=== PATIENT | male | born 1940 | race Hispanic/Latino ===

== ENCOUNTER → 2019-07-26 | Outpatient (CLI) | payer MEDICARE, OTHER ==
--- NOTE | 2019-07-27 08:49 | Diagnostic Imaging Report ---
Exam: KUB - 2 views Indication: Renal calculi, Agent [place] exposure. Comparison: None Findings: No radiographically apparent renal calculi. Nonobstructive bowel gas pattern. No free air. Status post cholecystectomy. Degenerative changes of the visualized spine. Phleboliths in the pelvis. Scattered atherosclerotic vascular calcifications. Impression: No radiographic apparent renal calculi. Signed by: Pankaj Webster MD on 07/27/2019 8:45 AM
== END ==
LOC: RAD 17:05
PROVIDERS: ATTEND Urology
DX: N20.0 Calculus of kidney (principal)
CPT/HCPCS: 74018

== ENCOUNTER 2020-01-13 13:45 | Observation (INO) | payer MEDICARE ==
[~2020-01-13] VITALS: Ht 172.7 cm; Wt 86.2 kg
[~2020-01-13 13:45] MED LIST: ALLOPURINOL300 MG PO; ANDROGEL2.5 G1 TOP; ATENOLOL50 MG PO; CENTRUM MEN'S1 EACH PO; CYMBALTA30 MG PO; FLOMAX0.4 MG PO; GLIMEPIRIDE2 MG PO; ISOSORBIDE MONO30 MG PO; METFORMIN HCL500 MG PO; NITROGLYCERIN0.4 MG SL; PLAVIX75 MG PO; PRAMIPEXOLE ER1.5 MG PO; PRAVASTATIN SOD40 MG PO; SYNTHROID125 MCG PO; VIT D PO
--- OUTSIDE RECORDS SUMMARY | 2020-01-13 13:49 | XMS REPORT | Summary of Care ---
Author Author LILAIN BRUNO M.D. Organization Unknown Address Unknown Phone Unavailable Care Team Providers Care Imaging Aide Name Role Phone LILIAN BRUNO M.D. Unavailable Unavailable LUIS ENRIQUE SUAREZ MD Unavailable Unavailable LILIAN BRUNO MD Unavailable Unavailable Unavailable Unavailable Functional Status Name Dates Details Functional status health issues are not documented Status: Name Dates Details Cognitive status health issues are not documented Status: Problems Name Dates Details Nephrolithiasis (592.0, N20.0) Status: Active Coronary artery disease (414.00, I25.10) Status: Active Cerebral artery occlusion (434.90, I66.9) Status: Active Fatigue (780.79, R53.83) Status: Active Need for immunization against influenza (V04.81, Z23) Status: Active Diabetes mellitus (250.00, E11.9) Status: Active 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 * Start : 02-Sep-2012 Active Ramipril 5 MG Oral Capsule TAKE 1 CAPSULE BY MOUTH TWICE DAILY HELD BY Dr MORGAN * Quantity: 180 Refills: 0 LILIAN BRUNO M.D. * Start : 02-Sep-2012 Active Plavix 75 MG Oral Tablet * Refills: 0 LILIAN BRUNO M.D. * Start : 02-Sep-2012 Active Synthroid 125 MCG Oral Tablet TAKE 1 TABLET BY MOUTH EVERY DAY * Quantity: 90 Refills: 0 LILIAN BRUNO M.D. * Start : 02-Sep-2012 Active Cymbalta 60 MG Oral Capsule Delayed Release Particles * Refills: 0 LILIAN BRUNO M.D. * Start : 02-Sep-2012 Active Allopurinol 300 MG Oral Tablet * Refills: 0 LILIAN BRUNO M.D. * Start : 02-Sep-2012 Active Vitamin D (Ergocalciferol) 1.25 MG (26204 UT) Oral Capsule TAKE 2 CAPS BY MOUTH ON FIRST WEDNESDAY OF THE MONTH THEN TAKE ONE CAPSULE FOR OF THE WEEK * Quantity: 15 Refills: 1 LILIAN BRUNO M.D. * Start : 02-Sep-2012 Active Nitrostat 0.4 MG Sublingual Tablet Sublingual * Refills: 0 LILIAN BRUNO M.D. * Start : 05-Sep-2012 Active Testosterone 20.25 MG/1.25GM (1.62%) Transdermal Gel apply 2 pump presses to one arm/shoulder and 1 press on other arm/shoulder daily on clean dry skin (3 presses daily) Start 05-06-19 * Quantity: 6 Refills: 0 LILIAN BRUNO M.D. * Start : 17-Oct-2013 Active 30 x 1.25 GM Box Pravastatin Sodium 40 MG Oral Tablet TAKE 1 TABLET DAILY * Refills: 0 LILIAN BRUNO M.D. * Start : 01-Oct-2015 Active Glimepiride 1 MG Oral Tablet TAKE 1 TABLET AM; 1/2 TABLET PM; take with food * Quantity: 180 Refills: 1 LILIAN BRUNO M.D. * Start : 01-Oct-2015 Active Pantoprazole Sodium 40 MG Oral Tablet Delayed Release TAKE 1 TABLET DAILY. * Quantity: 30 Refills: 6 LILIAN BRUNO M.D. * Start : 01-Oct-2015 Active Isosorbide Mononitrate ER 30 MG Oral Tablet Extended Release 24 Hour TAKE 1 TABLET DAILY. * Quantity: 90 Refills: 3 LILIAN BRUNO M.D. * Start : 01-Oct-2015 Active JonesTouch Madai Moore MISKendrick Check BG 2x a day * Quantity: 200 Refills: 4 LILIAN BRUNO M.D. * Start : 07-Jan-2016 Active OneTouch Verio In Vitro Strip USE TO TEST BLOOD SUGAR 3 TIMES A DAY * Quantity: 300 Refills: 0 LILIAN BRUNO M.D. * Start : 07-Jan-2016 Active HumaLOG KwikPen 100 UNIT/ML Subcutaneous Solution Pen-injector CF 40 ( sliding scale); up to 50 units * Quantity: 5 Refills: 1 LILIAN BRUNO M.D. * Start : 11-Sep-2016 Active 3 ML Pen BD Pen Needle Jenni U/F 32G X 4 MM 1 a day * Quantity: 1 Refills: 3 LILIAN BRUNO M.D. * Start : 11-Sep-2016 Active 100 Miscellaneous Box B-12 1000 MCG Oral Capsule 1 a day NOT TAKING * Quantity: 100 Refills: 10 LILIAN BRUNO M.D. * Start : 31-Mar-2017 Active Atenolol 50 MG Oral Tablet Per Dr Morgan * Refills: 0 LILIAN BRUNO M.D. * Start : 21-Dec-2018 Active 45 Tablet Bottle Gabapentin 300 MG Oral Capsule * Refills: 0 LILIAN BRUNO M.D. * Start : 03-May-2019 Active Pramipexole Dihydrochloride 0.25 MG Oral Tablet * Refills: 0 LILIAN BRUNO M.D. * Start : 03-May-2019 Active Ergocalciferol 1.25 MG (29532 UT) Oral Capsule TAKE 2 CAPS BY MOUTH ON FIRST WEDNESDAY OF THE MONTH THEN TAKE ONE CAPSULE FOR OF THE WEEK * Quantity: 15 Refills: 0 LILIAN BRUNO M.D. * Start : 27-Nov-2019 Active Testosterone 20.25 MG/ACT (1.62%) Transdermal Gel apply 2 pump presses to one arm/shoulder and 1 press on other arm/shoulder daily on clean dry skin (3 presses daily) Start 05-06-19 * Quantity: 5 Refills: 0 LILIAN BRUNO M.D. * Start : 27-Nov-2019 Active 75 GM Pump Btl Allergies and Adverse Reactions Name Dates Details No Known Drug Allergies (Allergy) Status: Active Past Medical History Name Dates Details History of cataract (V12.49, Z86.69) Status: Resolved History of renal calculi (V13.01, Z87.442) Status: Resolved Procedures Procedure Dates Details History of Appendectomy Completed History of CABG Completed History of Cholecystectomy Completed History of Hernia Repair Completed History of Shoulder Surgery Completed History of Shoulder replacement Completed Immunization Name Dates Details Influenza on: Aug-2014 Fluzone High-Dose 0.5 ML Intramuscular Suspension Prefilled Syringe Lot #: [id number] on: 01-Oct-2015 Fluzone High-Dose 0.5 ML Intramuscular Suspension Prefilled Syringe Lot #: [id number] on: 11-Sep-2016 Influenza Comments: Approx [id number] Influenza on: 17-Aug-2018 Influenza Comments: Approx [id number] Fluzone High-Dose 0.5 ML Intramuscular Suspension Prefilled Syringe on: 17-Jul-2019 Family History Name Dates Details Family history of Diabetes Mellitus (V18.0) Comments: Family History Status: Active Name Dates Details Family history of Diabetes Mellitus (V18.0) Status: Active Social History Name Dates Details - Status: Name Dates Details Former smoker Vital Signs Date Test Result Details No Known Vitals to report Results Date Description Value Details Results not documented Plan of Care Name Dates Details Planned Observations Planned Goals not documented Planned Encounters Appointment; LILIAN BRUNO M.D. On: 12-Dec-2019 9:30 Interventions Provided Medication Changes* Testosterone 20.25 MG/ACT (1.62%) Transdermal Gel - Renew Instructions Name Dates Details Instructions not documented Encounters Appointment; LILIAN BRUNO M.D. Encounter Diagnosis: Problem not documented On: 21-Feb-2018 9:00 Appointment; LILIAN BRUNO M.D. Encounter Diagnosis: Problem not documented On: 27-May-2018 10:30 Appointment; LILIAN BRUNO M.D. Encounter Diagnosis: Problem not documented On: 09-Sep-2018 13:00 Appointment; LILIAN BRUNO M.D. Encounter Diagnosis: Problem not documented On: 21-Dec-2018 10:00 Appointment; LILIAN BRUNO M.D. Encounter Diagnosis: Problem not documented On: 03-May-2019 14:45 Appointment; LILIAN BRUNO M.D. Encounter Diagnosis: Problem not documented On: 02-Aug-2019 8:30
--- OUTSIDE RECORDS SUMMARY | 2020-01-13 13:49 | XMS REPORT | Summary of Care ---
Author Author Juan Cyr, [facility] [place] Address Unknown Phone Unavailable Care Team Providers Care Sleep Technologist Name Role Phone LILIAN BRUNO M.D. Unavailable [...] 02-Sep-2012 Active Vitamin D (Ergocalciferol) 1.25 MG (80437 UT) Oral Capsule TAKE 2 CAPS BY [...] Start : 03-May-2019 Active Ergocalciferol 1.25 MG (30673 UT) Oral Capsule TAKE 2 CAPS BY MOUTH ON FIRST WEDNESDAY OF THE MONTH THEN TAKE ONE CAPSULE FOR REST OF THE WEEK * Quantity: 15 Refills: 0 LILIAN BRUNO M.D. * Start : 27-Nov-2019 Active Allergies and Adverse Reactions Name Dates Details [...] ML Intramuscular Suspension Prefilled Syringe Lot #: [id number] on: 01-Oct-2015 Fluzone High-Dose 0.5 ML Intramuscular Suspension Prefilled Syringe Lot #: [id number] on: 11-Sep-2016 Influenza Comments: Approx [id number] Influenza on: 17-Aug-2018 Influenza Comments: Approx [id number] Fluzone High-Dose 0.5 ML Intramuscular Suspension Prefilled [...] On: 12-Dec-2019 9:30 Interventions Provided Medication Changes* Ergocalciferol 1.25 MG (49797 UT) Oral Capsule - Renew Instructions Name Dates Details Instructions [...]
--- OUTSIDE RECORDS SUMMARY | 2020-01-13 13:49 | XMS REPORT | Summary of Care ---
Author Author LILIAN BRUNO M.D. Organization Unknown Address Unknown Phone Unavailable Care Team Providers Care Physiological Chemist Name Role Phone LILIAN BRUNO M.D. Unavailable [...] 02-Sep-2012 Active Allopurinol 300 MG Oral Tablet Per urologist * Refills: 0 LILIAN BRUNO M.D. * Start : 02-Sep-2012 Active Nitrostat 0.4 MG Sublingual Tablet Sublingual * Refills: 0 LILIAN BRUNO M.D. * Start : 05-Sep-2012 Active Pravastatin Sodium 40 MG Oral Tablet TAKE 1 TABLET DAILY * Refills: 0 LILIAN BRUNO M.D. * Start : 01-Oct-2015 Active Glimepiride 1 MG Oral Tablet TAKE 1 TABLET AM; 1 TABLET PM; take with food * Quantity: 180 Refills: 1 LILIAN BRUNO M.D. * Start : 01-Oct-2015 Active Pantoprazole Sodium 40 MG Oral Tablet Delayed Release Per PCP * Refills: 6 LILIAN BRUNO M.D. * Start : 01-Oct-2015 Active Isosorbide Mononitrate ER 30 MG Oral Tablet Extended Release 24 Hour TAKE 1 TABLET DAILY. * Quantity: 90 Refills: 3 LILIAN BRUNO M.D. * Start : 01-Oct-2015 Active OneTouch Delica Lancets Fine MISC Check BG 2x a day * Quantity: [...] Start : 21-Dec-2018 Active 45 Tablet Bottle Pramipexole Dihydrochloride 0.25 MG Oral Tablet * Refills: 0 LILIAN BRUNO M.D. * Start : 03-May-2019 Active Ergocalciferol 1.25 MG (11050 UT) Oral Capsule TAKE 2 CAPS BY [...] : 27-Nov-2019 Active 75 GM Pump Btl Fortesta 10 MG/ACT (2%) Transdermal Gel Apply 2 pump presses to each inner thigh * Quantity: 3 Refills: 1 LILIAN BRUNO M.D. * Start : 12-Dec-2019 Active 60 GM Pump Btl Allergies and Adverse Reactions [...] Surgery Completed History of Shoulder replacement Completed History of Bladder Surgery Completed Immunization Name Dates Details Influenza on: Aug-2014 Fluzone High-Dose 0.5 ML Intramuscular Suspension Prefilled Syringe Lot #: [id number] on: 01-Oct-2015 Fluzone High-Dose 0.5 ML Intramuscular Suspension Prefilled Syringe Lot #: [id number] on: 11-Sep-2016 Influenza Comments: Approx [id number] Influenza on: 17-Aug-2018 Influenza Comments: Approx [id number] Fluzone High-Dose 0.5 ML Intramuscular Suspension Prefilled Syringe on: 17-Jul-2019 Family History Name Dates Details Family history of Diabetes Mellitus (V18.0) Comments: Family History Status: Active Name Dates Details Family history of Diabetes Mellitus (V18.0) Status: Active Social History Name Dates Details - Status: Name Dates Details Former smoker Vital Signs Date Test Result Details [id number]:05 BP Systolic 102 mm[Hg] Status: Comments: Location: RUE; Position: Sitting BP Diastolic 70 mm[Hg] Status: Comments: Location: RUE; Position: Sitting :56 BP Systolic 94 mm[Hg] Status: Comments: Location: RUE; Position: Sitting BP Diastolic 62 mm[Hg] Status: Comments: Location: RUE; Position: Sitting Height 68 in Status: Weight 191.5625 lb Status: Body Mass Index Calculated 29.13 kg/m2 Status: Body Surface Area Calculated 2.01 m2 Status: Heart Rate 84 /min Status: Results Date Description Value Details :54 [O] Hemoglobin A1c (in office) HEMOGLOBIN A1c 6.7 :55 Glucose (Point of Care In Office) Glucose POC [place] 175 :55 [O] Lipid Panel (In Office) CHOLESTEROL, TOTAL 144 HDL CHOLESTEROL 58 TRIGLYCERIDES 111 LDL-CHOLESTEROL 64 NON HDL CHOLESTEROL 86 T. Chol/HDL Ratio 2.5 GLUCOSE 164 Plan of Care Name Dates Details Planned Observations Planned Goals not documented Planned Encounters Appointment; LILIAN BRUNO M.D. On: 13-Mar-2020 11:00 Interventions Provided Medication Changes* metFORMIN HCl ER 500 MG Oral Tablet Extended Release 24 Hour - Renew * Synthroid 125 MCG Oral Tablet - Renew * Testosterone 20.25 MG/ACT (1.62%) Transdermal Gel - Renew Labs/Procedures/Imaging* [O] Hemoglobin A1c (in office); Done: 12 Dec 2019 * [O] Lipid Panel (In Office); Done: 12 Dec 2019 * Glucose (Point of Care In Office); Done: 12 Dec 2019 Discussion/Summary* A1c and CBG generally okay. Continue regimen. Discussed the importance of DM control and its complications. Stressed the importance of consistent MNT and med compliance in DM control * Continue to do SMBG. * Take medicine per carbide grinder. Discussed the importance of BP control. * Take medicine per PCP. MNT reiterated. Discussed the importance of Lipid control. * take Vit D * He again missed ART lately due to insurance * [facility] * Spent 25/30 mins counseling pt and spouse Instructions Name Dates Details Instructions not documented [...] Diagnosis: Problem not documented On: 02-Aug-2019 8:30 Appointment; LILIAN BRUNO M.D. Encounter Diagnosis: Problem not documented On: 12-Dec-2019 9:30
--- OUTSIDE RECORDS SUMMARY | 2020-01-13 13:49 | XMS REPORT | Summary of Care ---
Author Author LILIAN BRUNO M.D. Organization Unknown Address Unknown Phone Unavailable Care Team Providers Care Certified Dietary Manager Name Role Phone LILIAN BRUNO M.D. Unavailable [...] 02-Sep-2012 Active Vitamin D (Ergocalciferol) 1.25 MG (34416 UT) Oral Capsule TAKE 2 CAPS BY [...] Start : 03-May-2019 Active Ergocalciferol 1.25 MG (60610 UT) Oral Capsule TAKE 2 CAPS BY [...] ML Intramuscular Suspension Prefilled Syringe Lot #: [id number] on: 01-Oct-2015 Fluzone High-Dose 0.5 ML Intramuscular Suspension Prefilled Syringe Lot #: [id number] on: 11-Sep-2016 Influenza Comments: Approx [id number] Influenza on: 17-Aug-2018 Influenza Comments: Approx [id number] Fluzone High-Dose 0.5 ML Intramuscular Suspension Prefilled [...] BRUNO M.D. On: 12-Dec-2019 9:30 Interventions Provided Discussion/Summary* Discussed the importance of DM control and its complications. Stressed the importance of consistent MNT and med compliance in DM control * do SMBG. * Take medicine. Discussed the importance of BP control. * Take medicine. MNT reiterated. Discussed the importance of Lipid control. * take Vit D * ART Instructions Name Dates Details Instructions not documented [...]
--- OUTSIDE RECORDS SUMMARY | 2020-01-13 13:49 | XMS REPORT | Summary of Care ---
Author Author Maritza Cyr, Tara Townsend Unknown Address Unknown Phone Unavailable Care Team Providers Care Gate Manager Name Role Phone LILIAN BRUNO M.D. Unavailable Unavailable Tara Salas R.N. Unavailable Unavailable LUIS ENRIQUE SUAREZ MD Unavailable [...] BY MOUTH TWICE A DAY Quantity: 360 DAMION M.D., LILIAN * Start : 02-Sep-2012 Active Ramipril 5 MG Oral Capsule TAKE 1 CAPSULE BY MOUTH TWICE DAILY HELD BY Dr MORGAN * Quantity: 180 Refills: 0 DAMION M.D., LILIAN * Start : 02-Sep-2012 Active Plavix 75 MG Oral Tablet * Refills: 0 DAMION M.D., LILIAN * Start : 02-Sep-2012 Active Synthroid 125 MCG Oral Tablet TAKE 1 TABLET BY MOUTH EVERY DAY * Quantity: 90 Refills: 0 DAMION M.D., LILIAN * Start : 02-Sep-2012 Active Cymbalta 60 MG Oral Capsule Delayed Release Particles * Refills: 0 LILIAN BRUNO M.D. * Start : 02-Sep-2012 Active Allopurinol 300 MG Oral Tablet * Refills: 0 LILIAN BRUNO M.D. * Start : 02-Sep-2012 Active Vitamin D (Ergocalciferol) 1.25 MG (27024 UT) Oral Capsule TAKE 2 CAPS BY [...] A DAY * Quantity: 300 Refills: 0 DAMION Angelia.María, LILIAN * Start : 07-Jan-2016 Active HumaLOG KwikPen 100 UNIT/ML Subcutaneous Solution Pen-injector CF 40 ( sliding scale); up to 50 units * Quantity: 5 Refills: 1 DAMION M.María, LILIAN * Start : 11-Sep-2016 Active 3 ML Pen BD Pen Needle Jenni U/F 32G X 4 MM 1 a day * Quantity: 1 Refills: 3 DAMION Angelia.Obie., LILIAN * Start : 11-Sep-2016 Active 100 Miscellaneous Box B-12 1000 MCG Oral Capsule 1 a day NOT TAKING * Quantity: 100 Refills: 10 DAMION Angelia.Obie., LILIAN * Start : 31-Mar-2017 Active Atenolol 50 MG Oral Tablet Per Dr Morgan * Refills: 0 DAMION M.María, LILIAN * Start : 21-Dec-2018 Active 45 Tablet Bottle Gabapentin 300 MG Oral Capsule * Refills: 0 DAMION Angelia.María, LILIAN * Start : 03-May-2019 Active Pramipexole Dihydrochloride 0.25 MG Oral Tablet * Refills: 0 DAMION M.D., LILIAN * Start : 03-May-2019 Active Allergies and Adverse Reactions Name Dates [...] ML Intramuscular Suspension Prefilled Syringe Lot #: [id number] on: 01-Oct-2015 Fluzone High-Dose 0.5 ML Intramuscular Suspension Prefilled Syringe Lot #: [id number] on: 11-Sep-2016 Influenza Comments: Approx [id number] Influenza on: 17-Aug-2018 Influenza Comments: Approx [id number] Fluzone High-Dose 0.5 ML Intramuscular Suspension Prefilled [...] M.D. On: 12-Dec-2019 9:30 Interventions Provided Discussion/Summary* Guideline Used: * Other: speak with clinic staff * Intended Caller Action: * Other: speak with staff Instructions Name Dates Details Instructions not documented [...]
[2020-01-13] MEDS ORDERED: NITROGLYCERIN 2% OINT 1 GM PKT TOP ONE (14:00)
[2020-01-13] MEDS ORDERED: ASPIRIN 81 MG CHEW TAB PO ONE (14:00)
[2020-01-13 14:29] LABS: BASOPHILS % 0.6 % (0.0-1.0); EOSINOPHILS # (AUTO) 0.1 (0.0-0.4); EOSINOPHILS % 1.7 % (0.0-6.0); HEMATOCRIT 41.8 % (38.2-49.6); HEMOGLOBIN 13.1 g/dL (14.0-18.0); LYMPHOCYTES % 27.8 % (18.0-39.1); MEAN CORPUSCULAR HEMOGLOBIN 26.7 pg (28-32); MEAN CORPUSCULAR HGB CONC 31.3 g/dL (31-35); MEAN CORPUSCULAR VOLUME 85.3 fL (81-99); MONOCYTES # (AUTO) 0.5 (0.2-0.8); MONOCYTES % 7.2 % (4.4-11.3); NEUTROPHILS # (AUTO) 4.4 (2.1-6.9); NEUTROPHILS % 62.1 % (38.7-80.0); PLATELET COUNT 233 x10e3/uL (140-360); RED CELL DISTRIBUTION WIDTH 20.1 % (11.7-14.4)
[2020-01-13 14:33] LABS: INR 0.88; PROTHROMBIN TIME 12.4 seconds (11.9-14.5)
[2020-01-13 14:34] LABS: PARTIAL THROMBOPLASTIN TIME 27.1 seconds (23.8-35.5)
[2020-01-13 14:44] LABS: ALANINE AMINOTRANSFERASE 30 IU/L (0-55); ALBUMIN 4.1 g/dL (3.5-5.0); ALBUMIN/GLOBULIN RATIO 1.4 (0.8-2.0); ALKALINE PHOSPHATASE 105 IU/L (40-150); ANION GAP 10.8 mmol/L (8-16); BLOOD UREA NITROGEN 18 mg/dL (7-26); BUN/CREATININE RATIO 18 (6-25); CALCIUM 9.3 mg/dL (8.4-10.2); CARBON DIOXIDE 27 mmol/L (22-29); CHLORIDE 106 mmol/L (98-107); CREATINE KINASE 353 IU/L (30-200); CREATININE, SERUM 1.02 mg/dL (0.72-1.25); EST GLOMERULAR FILTRATION RATE > 60 ML/MIN (60-); GLUCOSE 181 mg/dL (74-118); MAGNESIUM 1.7 MG/DL (1.3-2.1); POTASSIUM 3.8 mmol/L (3.5-5.1); SODIUM 140 mmol/L (136-145)
[2020-01-13] MEDS ORDERED: ONDANSETRON HCL INJ 2MG/ML 2ML 2 MG/ML VIAL IV PRN (14:45)
[2020-01-13] MEDS ORDERED: MORPHINE SULFATE 2 MG/ML SYR 1ML IV PRN (14:45)
[2020-01-13] MEDS ORDERED: NITROGLYCERIN 0.4 MG SUBL SL PRN (14:45)
[2020-01-13] MEDS ORDERED: DEXTROSE 50% SYRINGE 50 ML IV PRN (14:45)
--- NOTE | 2020-01-13 15:14 | Diagnostic Imaging Report ---
Examination: Single AP view of the chest. COMPARISON: Chest 2 views 09/08/2019 INDICATION: Chest pain IMPRESSION: 1. Lines and Tubes: None 2. Lungs are grossly clear. No consolidation or effusion. 3. Cardiomediastinal silhouette is normal. Pulmonary vasculature is normal. 4. No acute bony abnormalities. Midline sternotomy wires. Signed by: Dr. Leo Moseley M.D. on 01/13/2020 3:11 PM
[2020-01-13] MEDS: FAMOTIDINE 20 MG/2 ML VIAL IV SCH (15:48)
[2020-01-13 16:00] VITALS: BP 152/89
--- NOTE | 2020-01-13 16:11 | NUR ---
Recvd patient from ER, AAOx3. Denies any chest pain or SOB now, assisted him to bed, keep monitoring, family at bed side.
[2020-01-13] MEDS ORDERED: PANTOPRAZOLE SO40 MG PO (16:22)
[2020-01-13] MEDS ORDERED: AMITRIPTYLINE H25 MG PO (16:22)
[2020-01-13] MEDS: INSULIN LISPRO 100 UNIT/1 ML 3ML VIAL SQ SCH ×2 (16:30→20:35)
[2020-01-13 16:33] VITALS: BP 137/94
--- NOTE | 2020-01-13 19:20 | NUR ---
Patient received sitting up in bed. Family at bedside. Patient had no complaints of pain. Respirations even and non-labored. Fall precautions implemented. Patient instructed to call for assistance when needed. Call light within reach.
[2020-01-13 20:00] VITALS: BP 147/67
--- NOTE | 2020-01-13 20:47 | NUR ---
Patient stated he takes Pramipexole 2.5 mg PO and Amitriptyline 25 mg PO for restless legs /neuropathic pain. Dr. Armenta notified. New order received to continue both medications.
--- NOTE | 2020-01-13 22:00 | NUR ---
Blood specimen sent to lab for analysis of cardiac enzymes.
[2020-01-13] MEDS: PRAMIPEXOLE DIHYDROCHLORIDE 1 MG TAB PO SCH (22:14)
[2020-01-13] MEDS: AMITRIPTYLINE HCL 25 MG TAB PO SCH (22:14)
[2020-01-13 23:35] LABS: CREATINE KINASE MB 10.2 ng/mL (0-5.0)
[2020-01-14] VITALS (9 sets, daily range): BP systolic 141–176; BP diastolic 74–93
--- NOTE | 2020-01-14 00:15 | NUR ---
Report given to Zhao (RN) about patient's status. . Patient transferred to Room 112.
[2020-01-14] MEDS: FAMOTIDINE 20 MG/2 ML VIAL IV SCH ×2 (03:11→15:05)
--- NOTE | 2020-01-14 07:00 | NUR ---
BEDSIDE SHIFT REPORT RECEIVED FROM SANITARY ENGINEERING TEACHER NURSE. PT DENIES NEEDS AT THIS TIME.
[2020-01-14 07:18] LABS: BASOPHILS # (AUTO) 0.1 (0.0-0.1); BASOPHILS % 0.9 % (0.0-1.0); EOSINOPHILS # (AUTO) 0.2 (0.0-0.4); EOSINOPHILS % 2.5 % (0.0-6.0); HEMATOCRIT 45.8 % (38.2-49.6); HEMOGLOBIN 14.1 g/dL (14.0-18.0); LYMPHOCYTES # (AUTO) 1.8 (1.0-3.2); LYMPHOCYTES % 25.5 % (18.0-39.1); MEAN CORPUSCULAR HEMOGLOBIN 26.7 pg (28-32); MEAN CORPUSCULAR HGB CONC 30.8 g/dL (31-35); MEAN CORPUSCULAR VOLUME 86.7 fL (81-99); MONOCYTES # (AUTO) 0.7 (0.2-0.8); MONOCYTES % 9.6 % (4.4-11.3); NEUTROPHILS # (AUTO) 4.2 (2.1-6.9); NEUTROPHILS % 60.8 % (38.7-80.0); PLATELET COUNT 197 x10e3/uL (140-360); RED BLOOD COUNT 5.28 x10e6/uL (4.3-5.7); RED CELL DISTRIBUTION WIDTH 20.2 % (11.7-14.4)
[2020-01-14] MEDS: INSULIN LISPRO 100 UNIT/1 ML 3ML VIAL SQ SCH ×4 (07:30→21:00)
[2020-01-14 07:37] LABS: ALANINE AMINOTRANSFERASE 27 IU/L (0-55); ALBUMIN 3.6 g/dL (3.5-5.0); ALBUMIN/GLOBULIN RATIO 1.2 (0.8-2.0); ALKALINE PHOSPHATASE 85 IU/L (40-150); ANION GAP 10.7 mmol/L (8-16); BLOOD UREA NITROGEN 10 mg/dL (7-26); BUN/CREATININE RATIO 13 (6-25); CALCIUM 8.9 mg/dL (8.4-10.2); CARBON DIOXIDE 26 mmol/L (22-29); CHLORIDE 106 mmol/L (98-107); CHOL/HDL RATIO 3.3 (3.9-4.7); CHOLESTEROL 161 MD/DL (0-199); CREATININE, SERUM 0.76 mg/dL (0.72-1.25); EST GLOMERULAR FILTRATION RATE > 60 ML/MIN (60-); GLUCOSE 122 mg/dL (74-118); HDL CHOLESTEROL 49 MG/DL (40-60); LDL CHOLESTEROL 80 MG/DL (60-130); POTASSIUM 3.7 mmol/L (3.5-5.1); SODIUM 139 mmol/L (136-145); TRIGLYCERIDES 160 MG/DL (0-149)
[2020-01-14 07:54] LABS: CREATINE KINASE MB 8.7 ng/mL (0-5.0)
[2020-01-14] MEDS: HEPARIN SOD (PORCINE) 5,000 UNIT/ML VIAL SC SCH ×2 (08:44→21:05)
[2020-01-14] MEDS: ASPIRIN 81 MG ENTERIC COATED PO SCH (08:44)
[2020-01-14] MEDS ORDERED: CLOPIDOGREL BISULFATE 75 MG TAB PO SCH (09:00)
--- NOTE | 2020-01-14 10:45 | History and Physical ---
HISTORY OF PRESENT ILLNESS: This is a 79-year-old gentleman with a history of coronary artery disease, was in usual state of health until the patient was checking out and the patient was lifting a heavy pot and during the activity the patient started to have chest pain, about 7/10 in intensity, midsternal, no radiation. The patient with a history of CAD, came into the emergency room. The pain lasted for about a total of 1 hour and relieved by nitroglycerin, the patient came in and was admitted to the hospital to rule out acute coronary syndrome. PAST MEDICAL HISTORY: History of coronary artery disease, history of diabetes mellitus with neuropathy, history of exposure to [place], history of hypertension, history of hyperlipidemia, history of testosterone deficiency, and depression. The patient has also has history of gout and ongoing neuropathy from [place]. MEDICATIONS: He takes at home are allopurinol 300 mg daily, amitriptyline 25 mg daily, atenolol 50 mg daily, clopidogrel 75 mg daily, duloxetine 30 daily, glimepiride 2 mg twice a day, isosorbide 30 mg daily, levothyroxine 125 mcg daily, metformin 500 mg daily, nitroglycerin 0.5 mg as needed, pantoprazole 40 mg daily, pramipexole 1.5 mg for restless legs syndrome, pravastatin 40 mg, tamsulosin 0.4 mg, pack daily, and vitamin D once a week. ALLERGIES: ADHESIVE TAPES, OTHERWISE NO KNOWN ALLERGY ALLERGIES. PAST SURGICAL HISTORY: History of coronary artery bypass, history of kidney stone removal, history of hernia repair. FAMILY HISTORY: Positive for CAD and hypertension in brothers. SOCIAL HISTORY: No EtOH, no IV drug abuse the patient walks with a cane because of his neuropathy. REVIEW OF SYSTEMS: Positive for chest pain. No shortness of breath. No nausea, no vomiting. No diarrhea. No constipation. No rectal bleeding. No hematochezia. No hematemesis. No diplopia. No blurry vision. No paresthesias. Positive for hyperesthesias and neuropathy of lower extremities. Otherwise, all systems are negative. PHYSICAL EXAMINATION: GENERAL: Alert and oriented x3, in no acute distress at this time. No chest pain noted. VITAL SIGNS: Temperature is 96.5, pulse of 74, respirations of 16, blood pressure is 105/93, and pulse oximetry of 98%. HEENT: Normocephalic, atraumatic. Pupils are reactive. CVS: S1 and S2 normal. Regular rate and rhythm. Chest wall with sternotomy. ABDOMEN: Nontender, nondistended. EXTREMITIES: No clubbing. No cyanosis. Good pulses and decreased sensation in the lower extremities. LABORATORY VALUES: White count is 7.09, hemoglobin 13.1, and hematocrit of 41.8. Chemistries show sodium of 140, potassium 3.8, BUN of 18, creatinine of 1.02, glucose of 181. Creatine kinase is 353, CK-MB of 13. Troponin was less than 0.027. BNP was 61. Coags normal. IMAGING STUDIES: Chest x-ray shows no acute abnormalities and normal pulmonary vasculature. No consolidation. ASSESSMENT: Mr. Rory Pimentel with: 1. Chest pain, rule out acute coronary syndrome. troponins have been trended, there is negative so far. 2. Hyperlipidemia. We will check a lipid level. 3. Hypertension. Continue on his medication. 4. Neuropathy. We will continue his medication diabetes. Continue sliding scale and consult with Dr. Morgan has been done. 5. Further recommendation per clinical course. We will continue to monitor the patient along with the financial reporting consultant, Dr. Morgan. MD GLEN Torrez/MODL /[id number]
[2020-01-14] MEDS ORDERED: NITROGLYCERIN 0.4 MG SUBL SL SCH (13:00)
[2020-01-14] MEDS: METFORMIN HCL 500 MG TAB PO SCH (17:01)
--- NOTE | 2020-01-14 20:12 | Consultation ---
DATE OF CONSULTATION: 01/14/2020 Cardiology Consultation Thank you so much for asking me to see this nice man again in consultation. Mr. Pimentel is a charming 79-year-old man known to me for many years. CHIEF COMPLAINT: He presents to the emergency room yesterday afternoon after lifting a heavy pot at [employer]. He reports he developed left-sided chest discomfort, which lasted as much as an hour. He reports he did try a couple of sublingual nitroglycerin with some benefit. He does not recognize this discomfort. Does not seem similar to any other pains he has had in the past. 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 Last cardiac catheterization was 2010, which showed bypasses to all the open but extensive coronary artery disease. More recently, he has had difficulties with neuropathy in arms and legs and the [facility] has been investigating this to see whether it might be associated with Agent Vale exposure during the [place] War. He has also been told he has problems in his neck at C5-C6 region. He has past history of kidney stone, cholecystectomy, right total shoulder replacement in October 2017, Dr. Bailon did a "UroLift" in 2019. CURRENT HOME MEDICATIONS: Include allopurinol 300 mg daily, clopidogrel 75 mg daily, Cymbalta 60 mg daily, glimepiride 1 mg once a day, isosorbide 30 mg daily, metformin 500 mg two tablets twice a day, pantoprazole 40 mg daily, Synthroid 125 mcg daily, multivitamins, atenolol 50 mg daily, pramipexole, pravastatin 40 mg daily, tamsulosin 0.4 mg daily, finasteride 5 mg daily, and amitriptyline 25 mg at bedtime. PERSONAL AND SOCIAL HISTORY: He does not smoke or drink. PHYSICAL EXAMINATION: GENERAL: At this time shows a pleasant, alert man, who is comfortable. VITAL SIGNS: Blood pressure is 150/90. HEAD, EYES, EARS, NOSE, AND THROAT: Unremarkable. NECK: No jugular venous distention. No bruits. THORAX: With a healed midline sternotomy. Heart sounds S1 and S2 are equal. No murmurs. LUNGS: Clear. ABDOMEN: Protuberant. EXTREMITIES: No cyanosis, clubbing, or edema. LABORATORY DATA: Cardiac enzymes are normal. PT, PTT, and INR are normal. Hemoglobin 14.1 and white count 6.89. Glucose 122. Troponins are normal. EKG unremarkable. ASSESSMENT: 1. Atypical chest pain. 2. Coronary artery disease with previous coronary artery bypass graft surgery in 1996, associated with cerebrovascular accidents at the time. 3. Neuropathy, etiology not clear. 4. Type 2 adult onset diabetes. 5. Cervical spine disease. 6. Possible Agent Vale exposure. PLAN: We will perform Lexiscan Myoview for him tomorrow. Further management based on the results of study, as he is not able to walk adequately on treadmill at this time. MD DEEDEE Milton/MODL /[id number] cc: Andres Armenta MD
[2020-01-14] MEDS: PRAMIPEXOLE DIHYDROCHLORIDE 1 MG TAB PO SCH (21:05)
[2020-01-14] MEDS: AMITRIPTYLINE HCL 25 MG TAB PO SCH (21:05)
[2020-01-15 00:11] VITALS: BP 136/79
[2020-01-15] MEDS: FAMOTIDINE 20 MG/2 ML VIAL IV SCH ×2 (03:07→15:15)
[2020-01-15 04:00] VITALS: BP 162/82
[2020-01-15] MEDS ORDERED: LEVOTHYROXINE SODIUM 125 MCG TAB PO SCH (06:30)
--- NOTE | 2020-01-15 07:00 | NUR ---
RECEIVED PATIENT AWAKE RESTING IN BED NO S/S OF DISTRESS. BED LOW, WHEELS LOCKED, SIDE RAILS X2, CALL LIGHT IN REACH WILL CONTINUE TO MONITOR PATIENT.
[2020-01-15] MEDS: INSULIN LISPRO 100 UNIT/1 ML 3ML VIAL SQ SCH ×3 (07:30→16:14)
[2020-01-15] MEDS ORDERED: PANTOPRAZOLE SOD 40 MG TABEC PO SCH (07:30)
[2020-01-15] MEDS: METFORMIN HCL 500 MG TAB PO SCH ×2 (07:35→16:38)
--- NOTE | 2020-01-15 08:04 | Progress Note ---
DATE: 01/15/2020 SUBJECTIVE: The patient came in with chest pain yesterday, currently chest pain free. Has been seen by thiokol operator. The Lexiscan is ordered. Echocardiogram was done. The patient is currently back on his medications. No shortness of breath. OBJECTIVE: VITAL SIGNS: Temperature 97.5, pulse 87, respirations 20, blood pressure 136/79, and pulse oximetry 96%. HEENT: Normocephalic and atraumatic. Pupils are reactive. CVS: S1 and S2 normal. Regular rate and rhythm. ABDOMEN: Nontender and nondistended. EXTREMITIES: No clubbing, no cyanosis, and no edema. Positive for neuropathy and neuropathic changes. LABORATORY VALUES: Today's troponins trended to be negative at 0.012. CK and CK-MB slightly elevated. Lipid panel, LDL is 80. ASSESSMENT: Mr. Rory Pimentel with: 1. Chest pain, rule out acute coronary syndrome. Plan Lexiscan Myoview today. 2. History of coronary artery disease with bypass graft. Continue to monitor the patient. Continue on current medication. 3. Type 2 diabetes. 4. Neuropathy with possible Agent [place] exposure. PLAN: Further recommendation and clinical course, the patient can be discharged if the Lexiscan is normal. We will discuss with Cardiology and further recommendations. Andres Armenta MD ASJ/MODL /[id number]
[2020-01-15] MEDS ORDERED: REGADENOSON 0.4 MG/5 ML SYR IV ONE (08:19)
[2020-01-15] MEDS: HEPARIN SOD (PORCINE) 5,000 UNIT/ML VIAL SC SCH (08:33)
--- NOTE | 2020-01-15 08:34 | NUR ---
PATIENT LEFT TO NUCLEAR MEDICINE AT THIS TIME VIA WHEELCHAIR.
[2020-01-15 08:43] VITALS: BP 146/91
[2020-01-15] MEDS ORDERED: ISOSORBIDE MONONITRATE 30 MG TAB CR PO SCH (09:00)
[2020-01-15] MEDS ORDERED: CLOPIDOGREL BISULFATE 75 MG TAB PO SCH (09:00)
[2020-01-15] MEDS ORDERED: ALLOPURINOL 300 MG TAB PO SCH (09:00)
[2020-01-15] MEDS ORDERED: ATENOLOL 50 MG TAB PO SCH (09:00)
[2020-01-15] MEDS ORDERED: TAMSULOSIN HCL 0.4 MG CAP PO SCH (09:00)
[2020-01-15] MEDS ORDERED: DULOXETINE HCL 30 MG DELAYED RELEASE PO SCH (09:00)
[2020-01-15 09:43] VITALS: BP 146/91
--- NOTE | 2020-01-15 11:24 | NUR ---
PATIENT BACK FROM NUCLEAR MEDICINE AT THIS TIME IN STABLE CONDITION.
[2020-01-15 12:55] VITALS: BP 159/79
[2020-01-15] MEDS: ASPIRIN 81 MG ENTERIC COATED PO SCH (13:21)
[2020-01-15 16:00] VITALS: BP 143/96
--- NOTE | 2020-01-15 17:22 | NUR ---
STRESS TEST READ BY DR. BARKSDALE PATIENT OK TO DISCHARGE FROM HIS STANDPOINT
--- NOTE | 2020-01-15 17:34 | NUR ---
SPOKE WITH DR. GAMEZ TELEPHONE DISCHARGE ORDER GIVEN NEW ORDERS IMPLEMENTED
--- NOTE | 2020-01-15 17:50 | NUR ---
REMOVED PATIENTS IV. CATHETER TIP INTACT AND PRESSURE DRESSING APPLIED.
--- NOTE | 2020-01-15 17:57 | NUR ---
PATIENT DISCHARGED FROM FACILITY. PATIENT GATHERED ALL PERSONAL BELONGINGS, DISCHARGE INSTRUCTIONS, AND FOLLOW UP INFORMATION. PATIENT LEFT UNIT IN WHEELCHAIR AND WENT HOME VIA PRIVATE AUTO. NO S/S OF DISTRESS WHEN LEAVING FACILITY.
--- NOTE | 2020-01-15 19:16 | Myoview Stress Test ---
DATE OF STUDY: 01/15/2020 00:00:00 Stress Test - Treadmill ONLY STUDY PERFORMED: Lexiscan Myoview. FINDINGS: The patient had resting perfusion images after injection of 11.0 mCi of technetium-99m Myoview. Later due to his inability to exercise due to neuropathy and other problems, he was given Lexiscan 0.4 mg intravenously and shortly afterwards 33 mCi of technetium-99m Myoview. Perfusion images were taken by rotational tomography. Comparison of resting and Lexiscan stress images showed no significant evidence of any perfusion defect. There is no significant evidence of any scar nor ischemia. Additionally, gated wall motion images are obtained and there is global hypokinesis and calculated ejection fraction 37%. FINAL IMPRESSIONS: 1. Normal Lexiscan Myoview for perfusion. 2. Abnormal left ventricular function with calculated ejection fraction of 37%. MD DEEDEE Milton/LUZ /[id number]
== END 2020-01-15 17:57 | disposition home or self-care (01) ==
LOC: ER 13:45 → ERHOLD 14:44 → MED/SURG2 16:05 → MED/SURG 01-14 00:11
PROVIDERS: ADMIT Family Medicine; ATTEND Family Medicine
DX: R07.89 Other chest pain (principal); I25.10 Atherosclerotic heart disease of native coronary artery without angina pectoris; E11.40 Type 2 diabetes mellitus with diabetic neuropathy, unspecified; Z79.4 Long term (current) use of insulin; Z57.5 Occupational exposure to toxic agents in other industries; E29.1 Testicular hypofunction; E78.5 Hyperlipidemia, unspecified; F32.9 Major depressive disorder, single episode, unspecified; Z95.1 Presence of aortocoronary bypass graft; Z86.73 Personal history of transient ischemic attack (TIA), and cerebral infarction without residual deficits; D64.9 Anemia, unspecified
CPT/HCPCS: 36415 ×3; 71045; 78452; 80053 ×2; 80061; 82550 ×2; 82553 ×2; 82948 ×3; 83735; 83880; 84484 ×2; 85025 ×2; 85610; 85730; 93005; 93017; 93306; 99284; A9502; G0378 ×3; J1644 ×2; J2785

== ENCOUNTER 2022-09-06 14:02 | Emergency (ER) | payer MEDICARE, OTHER ==
[~2022-09-06] VITALS: Ht 172.7 cm; Wt 86.2 kg
[~2022-09-06 14:02] MED LIST changes: +AMITRIPTYLINE H25 MG PO; +PANTOPRAZOLE SO40 MG PO
== END 2022-09-06 17:23 | disposition home or self-care (01) ==
LOC: ER 14:20
DX: S00.81XA Abrasion of other part of head, initial encounter (principal); S80.212A Abrasion, left knee, initial encounter; S80.211A Abrasion, right knee, initial encounter; E11.9 Type 2 diabetes mellitus without complications; I10 Essential (primary) hypertension; E78.5 Hyperlipidemia, unspecified; I25.810 Atherosclerosis of coronary artery bypass graft(s) without angina pectoris; W01.198A Fall on same level from slipping, tripping and stumbling with subsequent striking against other object, initial encounter; Y92.009 Unspecified place in unspecified non-institutional (private) residence as the place of occurrence of the external cause; Z88.6 Allergy status to analgesic agent; Z91.048 Other nonmedicinal substance allergy status; Z79.02 Long term (current) use of antithrombotics/antiplatelets; Z79.84 Long term (current) use of oral hypoglycemic drugs; Z79.899 Other long term (current) drug therapy; Z95.1 Presence of aortocoronary bypass graft
CPT/HCPCS: 70450; 99283